=== PATIENT | female | born 1990 | race Caucasian/White ===

== ENCOUNTER 2020-04-16 23:24 | Emergency (ER) | payer MEDICAID ==
[~2020-04-16] VITALS: Ht 149.9 cm; Wt 65.3 kg
[2020-04-16 23:36] VITALS: Ht 149.9 cm; Wt 65.3 kg
[2020-04-17 00:25] LABS: BASOPHIL % 0.3 % (0-2); PLATELET COUNT 290 x10^3mcL (130-400); RED CELL DISTRIBUTION WIDTH 13.3 % (11.5-14.5)
[2020-04-17 02:54] VITALS: BP 110/59
== END 2020-04-17 02:54 | disposition home or self-care (01) ==
LOC: ED 23:24
DX: O20.0 Threatened abortion (principal)
CPT/HCPCS: Q0092

== ENCOUNTER 2020-04-20 11:58 | Emergency (ER) | payer MEDICAID ==
[~2020-04-20] VITALS: Ht 152.4 cm; Wt 67.6 kg
[2020-04-20 12:10] VITALS: BP 122/53; Ht 152.4 cm; Wt 67.6 kg
== END 2020-04-20 13:58 | disposition home or self-care (01) ==
LOC: ED 11:58
DX: O03.9 Complete or unspecified spontaneous abortion without complication (principal); Z3A.01 Less than 8 weeks gestation of pregnancy